=== PATIENT | female | born 1995 | race African-American/Black ===

== ENCOUNTER 2016-09-11 10:49 | Emergency (ER) | payer MEDICAID ==
[~2016-09-11] VITALS: Ht 162.6 cm; Wt 75.0 kg
[2016-09-11 11:27] VITALS: BP 112/72
== END 2016-09-11 12:26 | disposition home or self-care (01) ==
LOC: ER 12:04
DX: R05 Cough (principal); J45.909 Unspecified asthma, uncomplicated; F12.10 Cannabis abuse, uncomplicated
CPT/HCPCS: 99283

== ENCOUNTER 2016-11-07 11:05 | Emergency (ER) | payer MEDICAID | END 2016-11-07 14:49 | disposition left against medical advice (07) | LOC: ER 14:38 | DX: R53.1 Weakness (principal); R42 Dizziness and giddiness; Z53.21 Procedure and treatment not carried out due to patient leaving prior to being seen by health care provider ==

== ENCOUNTER 2018-04-19 14:38 | Emergency (ER) | payer SELFPAY ==
[~2018-04-19] VITALS: Ht 162.6 cm; Wt 70.0 kg
[2018-04-19 15:29] VITALS: BP 114/74
== END 2018-04-19 18:44 | disposition left against medical advice (07) ==
LOC: ER 14:38
DX: Z53.21 Procedure and treatment not carried out due to patient leaving prior to being seen by health care provider (principal)

== ENCOUNTER 2018-05-13 07:28 | Emergency (ER) | payer MEDICAID ==
[~2018-05-13] VITALS: Ht 162.6 cm; Wt 68.0 kg
[2018-05-13 08:06] VITALS: BP 106/68
[2018-05-13] MEDS ORDERED: ACETAMINOPHEN 500MG TABLET PO ONE (10:15)
[2018-05-13] MEDS ORDERED: IBUPROFEN 600MG TABLET PO ONE (10:15)
== END 2018-05-13 17:05 | disposition home or self-care (01) ==
LOC: ER 11:29
DX: R51 Headache (principal); F12.10 Cannabis abuse, uncomplicated; F17.200 Nicotine dependence, unspecified, uncomplicated
CPT/HCPCS: 81025; 99283

== ENCOUNTER 2018-07-09 13:28 | Emergency (ER) | payer MEDICAID ==
[~2018-07-09] VITALS: Ht 162.6 cm; Wt 68.0 kg
[2018-07-09 13:39] VITALS: BP 113/66
[2018-07-09] MEDS ORDERED: PREDNISONE 20MG TABLET PO STA (13:51)
[2018-07-09] MEDS ORDERED: IPRATROPIUM BROMIDE (0.02%) 0.5MG/2.5ML NEB HHN STA (13:51)
[2018-07-09] MEDS ORDERED: ALBUTEROL (0.083%) 2.5MG/3ML NEB HHN STA (13:51)
== END 2018-07-09 15:50 | disposition home or self-care (01) ==
LOC: ER 15:47
DX: J20.9 Acute bronchitis, unspecified (principal); F12.10 Cannabis abuse, uncomplicated
CPT/HCPCS: 71045; 81025; 99283; J7512

== ENCOUNTER 2018-10-07 07:46 | Emergency (ER) | payer MEDICAID ==
[~2018-10-07] VITALS: Ht 162.6 cm; Wt 76.0 kg
[2018-10-07] MEDS ORDERED: ONDANSETRON HCL 4MG/2ML INJ IV STA (08:43)
[2018-10-07] MEDS ORDERED: ACETAMINOPHEN 325MG TABLET PO STA (08:43)
[2018-10-07] MEDS ORDERED: SODIUM CHLORIDE 0.9% 1,000 ML IV ONE (08:43)
[2018-10-07 09:06] LABS: BASOPHILS % 0.4 % (0.0-2.0); HEMATOCRIT. 35.6 % (36.0-48.0); HEMOGLOBIN. 11.9 g/dL (12.0-16.0); LYMPHOCYTES % 8.5 % (20.0-50.0); MEAN CORPUSCULAR HEMOGLOBIN 28.9 pg (28.0-32.0); MEAN CORPUSCULAR VOLUME 86.2 fL (81.0-99.0); MEAN PLATELET VOLUME 8.1 fl (7.4-10.4); MONOCYTES % 7.4 % (2.0-8.0); NEUTROPHILS % 83.7 % (40.0-76.0); PLATELET 240 x1000/uL (130-400); RED BLOOD CELL COUNT 4.13 mill/uL (4.2-5.4); RED CELL DISTRIBUTION WIDTH 15.2 % (11.6-14.6)
[2018-10-07 09:07] LABS: CHLORIDE 99 mEq/L (98-107)
[2018-10-07 09:16] LABS: HCG SCREEN NEGATIVE
[2018-10-07 10:06] LABS: CLARITY URINE CLEAR (CLEAR); COLOR URINE DARK YELLOW (YELLOW); KETONES URINE 3+ (NEGATIVE); LEUKOCYTE ESTERASE URINE NEGATIVE (NEGATIVE); NITRITE URINE NEGATIVE (NEGATIVE); OCCULT BLOOD URINE 1+ (NEGATIVE); PROTEIN URINE 1+ (NEGATIVE)
[2018-10-07 11:30] VITALS: BP 112/64
== END 2018-10-07 12:00 | disposition home or self-care (01) ==
LOC: ER 08:18
DX: B34.9 Viral infection, unspecified (principal); F12.10 Cannabis abuse, uncomplicated
CPT/HCPCS: 36415; 71045; 80053; 81003; 81025; 84703; 85025; 87804; 96361; 96374; 99284; J2405; J7030

== ENCOUNTER 2019-02-01 20:54 | Emergency (ER) | payer MEDICAID ==
[2019-02-01 21:11] VITALS: BP 101/83
== END 2019-02-02 03:11 | disposition left against medical advice (07) ==
LOC: ER 20:54
DX: Z53.21 Procedure and treatment not carried out due to patient leaving prior to being seen by health care provider (principal)

== ENCOUNTER 2020-08-17 08:44 | Emergency (ER) | payer MEDICAID ==
[~2020-08-17] VITALS: Ht 165.1 cm; Wt 75.0 kg
[2020-08-17] MEDS ORDERED: IBUPROFEN 600MG TABLET PO ONE (09:00)
[2020-08-17 10:50] VITALS: BP 115/72
== END 2020-08-17 11:19 | disposition home or self-care (01) ==
LOC: ER 08:44
DX: M25.572 Pain in left ankle and joints of left foot (principal); F12.10 Cannabis abuse, uncomplicated
CPT/HCPCS: 73610; 99283